=== PATIENT | male | born 1990 | race American Indian/Alaskan Native ===

== ENCOUNTER 2019-08-17 16:56 | Emergency (ER) | payer SELFPAY ==
[2019-08-17 17:19] VITALS: BP 120/50
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
== END 2019-08-17 21:15 | disposition home or self-care (01) ==
LOC: ED 16:56
DX: M54.9 Dorsalgia, unspecified (principal); Z98.890 Other specified postprocedural states; V49.59XA Passenger injured in collision with other motor vehicles in traffic accident, initial encounter; Y93.89 Activity, other specified; Y92.410 Unspecified street and highway as the place of occurrence of the external cause; Y99.8 Other external cause status